=== PATIENT | male | born 1955 | race Caucasian/White ===

== ENCOUNTER 2019-02-19 18:10 | Emergency (ER) | payer BC ==
[2019-02-19 18:54] VITALS: BP 142/80
--- NOTE | 2019-02-19 19:36 | UC ---
Skin Complaint HPI - HPI Summary HPI Summary: 63-year-old male who has a small rash in his mid abdomen. He states approximately 10 days ago he thinks he may have removed a tick by scratching the area. Denies any other symptoms of illness. - History of Current Complaint Chief Complaint: UCSkin Time Seen by Provider: 02/19/19 19:03 Stated Complaint: TICK BITE Hx Obtained From: Patient Onset/Duration: Gradual Onset, Other - Patient just noticed the worsening rash today. Skin Exposure Onset/Duration: Days Ago - thinks he removed a tick approximately 10 days ago. Timing: Constant Onset Severity: Mild Current Severity: Mild Pain Intensity: 0 Location: Other - Mid abdomen just above his umbilicus. Aggravating Factor(s): Nothing Alleviating Factor(s): Nothing Associated Signs & Symptoms: Positive: Negative - Allergy/Home Medications Allergies/Adverse Reactions: Allergies Allergy/AdvReac Type Severity Reaction Status Date / Time ampicillin Allergy Rash Verified 02/19/19 18:54 Home Medications: Home Medications Albuterol HFA INHALER* [Ventolin HFA Inhaler*] 02/19/19 [History] Budesonide NASAL (NF) [Rhinocort Aqua (NF)] 02/19/19 [History] Fluticasone Propionate [Xhance] 02/19/19 [History Confirmed 02/19/19] Mometasone/Formoter 100/5 MDI* [Dulera 100/5 MDI*] 02/19/19 [History] Sargentin* 02/19/19 [History] PMH/Surg Hx/FS Hx/Imm Hx Previously Healthy: Yes Respiratory History: Asthma - Surgical History Surgical History: Yes Surgery Procedure, Year, and Place: 5 NASAL POLYPECTOMIES, SINUS SURGERY - Family History Known Family History: Positive: Non-Contributory - Social History Alcohol Use: Occasionally Substance Use Type: None Smoking Status (MU): Never Smoked Tobacco Review of Systems All Other Systems Reviewed And Are Negative: Yes Skin: Positive: Rash - Red circular rash just above his umbilicus which he's had since a tick bite 10 days ago but has progressively worsened. Is Patient Immunocompromised?: No Physical Exam Triage Information Reviewed: Yes Appearance: Well-Appearing, No Pain Distress, Well-Nourished Vital Signs: Initial Vital Signs Temp 97.1 F 02/19/19 18:49 Pulse 54 02/19/19 18:49 Resp 16 02/19/19 18:49 BP 142/80 02/19/19 18:49 Pulse Ox 100 02/19/19 18:49 Vital Signs Reviewed: Yes Skin: Positive: Rashes - Circular rash above his umbilicus of approximately 4.0 cm in diameter with a very small area of clearing in the middle. It is not raised. Course/Dx - Course Course Of Treatment: A Lyme titer is drawn here. I am going to start the patient on doxycycline 100 mg by mouth twice a day 14 days. He is to follow-up with his primary care provider for further care after he gets results of the Lyme titer. Patient is agreeable to this plan of action. - Diagnoses Provider Diagnosis: Erythema migrans (Lyme disease) Discharge - Sign-Out/Discharge Documenting (check all that apply): Patient Departure All imaging exams completed and their final reports reviewed: No Studies - Discharge Plan Condition: Fair Disposition: HOME Prescriptions: DOXYcycline CAP(*) [DOXYcycline 100MG CAP(*)] 100 mg PO BID 14 Days #28 cap Patient Education Materials: Lyme Disease (ED) Referrals: No Primary Care Phys,NOPCP [Primary Care Provider] - [facility] [Outside] Additional Instructions: We will call you with the results of the Lyme titers. No dairy products, antacids or multivitamins 2 hours before you take the doxycycline and 2 hours after, but be sure and take the doxycycline with food. - Billing Disposition and Condition Condition: FAIR Disposition: Home
--- NOTE | 2019-02-21 16:19 | UC ---
- Progress Note Progress Note: Lyme screen came back negative, patient can stop the the doxycycline. Follow up with PCP if still experiencing symptoms Course/Dx - Diagnoses Provider Diagnoses: Erythema migrans (Lyme disease) Discharge - Sign-Out/Discharge Documenting (check all that apply): Post-Discharge Follow Up All imaging exams completed and their final reports reviewed: No Studies - Discharge Plan Condition: Fair Disposition: HOME Prescriptions: DOXYcycline CAP(*) [DOXYcycline 100MG CAP(*)] 100 mg PO BID 14 Days #28 cap Patient Education Materials: Lyme Disease (ED) Referrals: [facility] [Outside] No Primary Care Phys,NOPCP [Primary Care Provider] - Additional Instructions: We will call you with the results of the Lyme titers. No dairy products, antacids or multivitamins 2 hours before you take the doxycycline and 2 hours after, but be sure and take the doxycycline with food. - Billing Disposition and Condition Condition: FAIR Disposition: Home
== END 2019-02-19 19:45 | disposition home or self-care (01) ==
LOC: UCEAST 18:10
DX: A69.20 Lyme disease, unspecified (principal); J45.909 Unspecified asthma, uncomplicated
CPT/HCPCS: 36415; 86618; 99202; G0463